=== PATIENT | male | born 1935 | race Caucasian/White ===

== ENCOUNTER → 2016-08-29 | Outpatient (REF) | payer MEDICARE ==
[~2016-08-29] MED LIST: ACET650T2 PO; ATOR40TA PO; CIPR500T89 PO; CODEINE OR; FINA5TAB2 PO; PLAV75TA38 PO; ROXI1TAB2 PO; TYLE650T25 PO; TYLENOL OR; aspirin
== END ==
LOC: M SMT 17:00
PROVIDERS: ATTEND Urology
DX: C64.9 Malignant neoplasm of unspecified kidney, except renal pelvis (principal)

== ENCOUNTER 2018-10-16 15:56 | Emergency (ER) | payer MEDICARE ==
[~2018-10-16] VITALS: Ht 162.6 cm; Wt 55.5 kg
[~2018-10-16 15:56] MED LIST changes: -ACET650T2 PO; +ACET650T3 PO; -ATOR40TA PO; +ATOR40TA75 PO; +CIPR-249 PO; -CIPR500T89 PO; +PANT40TA3 PO; +PLAV1TAB2 PO; -PLAV75TA38 PO; +PRED10TA2 PO
[2018-10-16] MEDS ORDERED: NS 1,000 ML IV SCH (17:18)
[2018-10-16] MEDS ORDERED: ONDANSETRON 4MG/2ML VIAL (J2405) IV ONE (17:30)
[2018-10-16 17:49] LABS: BASO % 0.3 % (0.0-1.0); EOS # 0.2 10^3/uL (0.0-0.50); EOS % 1.4 % (0.0-3.0); HEMATOCRIT 44.8 % (42.0-52.0); LYMPH # 0.6 10^3/uL (1.5-4.5); LYMPH % 4.9 % (24.0-44.0); MEAN CORPUSCULAR HEMOGLOBIN 29.5 pg (27.0-33.0); MEAN CORPUSCULAR HGB CONC 33.5 g/dl (32.0-36.5); MEAN CORPUSCULAR VOLUME 88.2 fl (80.0-96.0); MONO # 1.1 10^3/uL (0.0-0.8); MONO % 9.2 % (0.0-5.0); NEUTROPHILS # 9.6 10^3/uL (1.8-7.7); NEUTROPHILS % 83.2 % (36.0-66.0); PLATELET COUNT, AUTOMATED 193 10^3/uL (150-450); RED BLOOD COUNT 5.08 10^6/uL (4.30-6.10); WHITE BLOOD COUNT 11.5 10^3/uL (4.0-10.0)
[2018-10-16 18:17] LABS: ALBUMIN 2.6 GM/DL (3.2-5.2); BILIRUBIN,DIRECT 0.3 MG/DL (0.0-0.2); BILIRUBIN,TOTAL 0.7 MG/DL (0.2-1.0); CALCIUM LEVEL 8.9 MG/DL (8.8-10.2); CREATININE FOR GFR 1.74 MG/DL (0.70-1.30); POTASSIUM SERUM 4.4 MEQ/L (3.5-5.1); TOTAL PROTEIN 6.7 GM/DL (6.4-8.2)
[2018-10-16] MEDS ORDERED: ZOFR4TAB16 PO (18:44)
[2018-10-16 18:58] VITALS: BP 122/71
[2018-10-31] MEDS ORDERED: PANT40TA3 PO (09:05)
[2018-10-31] MEDS ORDERED: OXYC-517 PO (09:06)
[2018-11-01] MEDS ORDERED: DULO1CAP5 (01:23)
== END 2018-10-16 19:08 | disposition home or self-care (01) ==
LOC: M ED 15:56
DX: R11.10 Vomiting, unspecified (principal); J44.9 Chronic obstructive pulmonary disease, unspecified; I25.10 Atherosclerotic heart disease of native coronary artery without angina pectoris; R91.8 Other nonspecific abnormal finding of lung field; Z79.899 Other long term (current) drug therapy; Z85.528 Personal history of other malignant neoplasm of kidney; F17.210 Nicotine dependence, cigarettes, uncomplicated
CPT/HCPCS: 80048; 80076; 83690; 85025; 93041; 96361; 96374; 99284; J2405

== ENCOUNTER → 2018-10-23 | Outpatient (CLI) | payer MEDICARE ==
[~2018-10-23] MED LIST changes: +DULO1CAP5; +OXYC-517 PO; +PROHANCE 279.3MG/ML 15ML VIAL (A9576) As Ordered ONE; +ZOFR4TAB16 PO
--- NOTE | 2018-10-23 14:25 | REPVR ---
EXAM: MR Head Without and With Contrast EXAM DATE/TIME: 10/23/2018 9:28 AM CLINICAL HISTORY: 83 years old, male; Visual disturbance; Patient HX: HX lung CA; Additional info: Visual loss TECHNIQUE: Imaging protocol: MR of the head without and with intravenous contrast. Contrast material: PROHANCE; Contrast volume: 5 ml; Contrast route: IV; COMPARISON: No relevant prior studies available. FINDINGS: Brain: There are innumerable enhancing nodules within the bilateral cerebral and cerebellar hemispheres consistent with metastases in this patient with known lung cancer. There is a 4.3 x 3.8 x 2.6 cm heterogeneously enhancing mass within the right posterior fossa, possibly extra-axial in location. Differential diagnosis includes a metastasis in this patient with known lung cancer. Considering its location, other possibilities such as meningioma and nerve sheath tumor should be considered. There are occasional punctate foci of high signal abnormality on the diffusion images concerning for small acute infarcts. There is extensive high signal abnormality in the periventricular white matter and centrum semiovale, best seen on the flair images. These changes are nonspecific but likely represent chronic small vessel ischemic change. Ventricles: The right posterior fossa mass compresses the fourth ventricle and there is mild hydrocephalus. Bones/joints: Unremarkable. Soft tissues: Normal. Sinuses: Normal as visualized. No acute sinusitis. Mastoid air cells: There is moderate right mastoid disease. Orbits: Unremarkable. 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 Vertebral arteries: There is abnormal flow signal within the left intracranial vertebral artery suspicious for either slow flow or occlusion. IMPRESSION: 1. There are innumerable enhancing nodules within the bilateral cerebral and cerebellar hemispheres consistent with metastases in this patient with known lung cancer. 2. There is a 4.3 x 3.8 x 2.6 cm heterogeneously enhancing mass within the right posterior fossa, possibly extra-axial in location. Differential diagnosis includes a metastasis in this patient with known lung cancer. Considering its location, other possibilities such as meningioma and nerve sheath tumor should be considered. 3. The right posterior fossa mass compresses the fourth ventricle and there is mild hydrocephalus. 4. There is abnormal flow signal within the left intracranial vertebral artery suspicious for either slow flow or occlusion. Followup CT or MR angiography is recommended. 5. There are occasional punctate foci of high signal abnormality on the diffusion images concerning for small acute infarcts. 6. 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 7. There is extensive high signal abnormality in the periventricular white matter and centrum semiovale, best seen on the flair images. These changes are nonspecific but likely represent chronic small vessel ischemic change. Electronically signed by: Oleg Rowe On 10/23/2018 14:25:20 PM
== END ==
LOC: M RAD 09:21
PROVIDERS: ATTEND Internal Medicine Hematology & Oncology
DX: H54.7 Unspecified visual loss (principal); R91.8 Other nonspecific abnormal finding of lung field
CPT/HCPCS: 70553; A9576

== ENCOUNTER → 2018-10-24 | Outpatient (CLI) | payer MEDICARE ==
[~2018-10-24] MED LIST changes: +LIDOCAINE 1% MDV 20ML VIAL As Ordered ONE; -PROHANCE 279.3MG/ML 15ML VIAL (A9576) As Ordered ONE
--- NOTE | 2018-10-24 12:17 | REP ---
CHEST, SINGLE VIEW: Single view of the chest is performed status post right lung biopsy. There is no pneumothorax. Large focal parenchymal opacity is seen in the inferior aspect of the right upper lobe. Ectatic thoracic aorta is noted as well as multiple sternal wires and mediastinal clips. IMPRESSION: No pneumothorax status post right lung biopsy. Electronically Signed by Robi Gallo MD 10/24/2018 04:32 P
--- NOTE | 2018-10-24 16:23 | REP ---
CT-guided right lower lobe lung biopsy The procedure is performed by JOSEE Charlton, under the direct supervision of Dr. Gallo. The patient has a history of multiple right lung nodule is on the outside CT scan dated 10/24/2018. The risks and benefits of the procedure were explained to the patient and informed consent was obtained both orally and written. Directly prior to the start of the procedure, a formal timeout was done in the exam room. The right lower lobe lung nodule was localized using CT guidance. Skin was prepped and draped in the usual sterile fashion. 3 ml of 1% lidocaine was used as a local anesthetic. Using CT guidance a 19/20 gauge coaxial needle biopsy system was inserted and advanced into the nodule. 4 core biopsy samples were obtained and sent to the lab. CT images obtained directly after the biopsy show no evidence of pneumothorax. After the appropriate amount of monitored convalescence the patient was discharged from the department. Reviewed by JOSEE Dhaliwal 10/24/2018 12:37 P Electronically Signed by Robi Gallo MD 10/24/2018 04:14 P
== END ==
LOC: M RADPRO 08:11
PROVIDERS: ATTEND Internal Medicine Hematology & Oncology
DX: C34.91 Malignant neoplasm of unspecified part of right bronchus or lung (principal); Z79.899 Other long term (current) drug therapy